=== PATIENT | male | born 1990 | race Caucasian/White ===

== ENCOUNTER 2021-06-10 20:11 | Emergency (ER) | payer OTHER ==
--- NOTE | 2021-06-10 21:00 | XRAY Report ---
PROCEDURE: Finger(s) LT INDICATIONS: Trauma TECHNIQUE: AP hand, 2 views of the left finger(s) acquired. COMPARISON: None FINDINGS: Bones: The left fifth middle phalange is dislocated dorsally. Possible avulsion fracture off the vola r plate of the base of the fifth middle phalange. Soft tissues: No suspicious soft tissue calcifications. IMPRESSION: Left fifth PIP joint dislocation and possible small avulsion fracture of the fifth middle phalangeal volar plate. Reviewed by: Juana Kelley MD, PhD on 06/10/2021 8:59 PM PDT Approved by: Juana Kelley MD, PhD on 06/10/2021 8:59 PM PDT Station ID: [id number]
[2021-06-10] MEDS ORDERED: LIDOCAINE-MPF 2% 5 ML VIAL SUBQ STA (21:18)
--- NOTE | 2021-06-10 21:25 | ED Physician Documentation ---
History of Present Illness - Stated complaint Stated Complaint: LT HAND PX - Chief complaint Chief Complaint: Trauma Ext - History obtained from History obtained from: Patient - History of Present Illness Pain level max: 1 Pain level now: 1 - Additonal information Additional information: Patient is a 31-year-old male, right-handed who presents to the emergency department with a left fifth digit injury. He was performing [employer] tonight when he sustained an injury to the left fifth digit. Noted deformity. Rates the pain as a 1 out of 10. Worse with movement, better with rest. No numbness or tingling. No bleeding. Review of Systems Constitutional: denies: Fever Neurologic: denies: Focal weakness PD PAST MEDICAL HISTORY - Past Medical History Past Medical History: No - Past Surgical History Past Surgical History: Yes - Present Medications Home Medications: Ambulatory Orders Medication Instructions Recorded Confirmed No Known Home Medications 06/10/21 06/10/21 - Allergies Allergies/Adverse Reactions: Allergies Allergy/AdvReac Type Severity Reaction Status Date / Time No Known Drug Allergies Allergy Verified 06/10/21 20:26 - Social History Does the pt smoke?: No Smoking Status: Never smoker Does the pt drink ETOH?: No Does the pt have substance abuse?: No - Immunizations Immunizations are current?: Yes PD ED PE NORMAL - Vitals Vital signs reviewed: Yes - General General: Alert and oriented X 3, No acute distress - HEENT HEENT: Moist mucous membranes - Neck Neck: Supple, no meningeal sign - Cardiac Cardiac: RRR - Respiratory Respiratory: No respiratory distress, Clear bilaterally - Derm Derm: Warm and dry - Extremities Extremities: Other (Deformity to left fifth digit. Neurovascular intact) - Neuro Neuro: Alert and oriented X 3 - Psych Psych: Normal mood, Normal affect Results - Vitals Vitals: Vital Signs - 24 hr 06/10/21 06/10/21 20:19 21:50 Temperature 36.7 C 36.7 C Heart Rate 82 75 Respiratory 16 16 Rate Blood Pressure 133/77 H 131/68 H O2 Saturation 97 98 Oxygen O2 Source Room air - Rads (name of study) Left fifth digit x-ray Radiology: Final report received, EMP read contemporaneously, See rad report Procedures - Reduction Body part reduced: Left, Finger (Fifth digit) Fracture or dislocation: Dislocation Anesthesia: Digital block Reduction aftercare: NV intact, Alignment improved, Splint applied, Patient tolerated well PD MEDICAL DECISION MAKING - ED course Complexity details: reviewed results, considered differential, d/w patient ED course: Patient with a left fifth digit finger dislocation. 2% lidocaine was used as a digital block. Excellent anesthesia. This was reduced easily. Placed in a finger splint. Possible small avulsion. We will have him follow-up with his doctor if he continues to have symptoms. Patient counseled regarding signs and symptoms for which I believe and urgent re-evaluation would be necessary. Patient with good understanding of and agreement to plan and is comfortable going home at this time This document was made in part using voice recognition software. While efforts are made to proofread this document, sound alike and grammatical errors may occur. Departure - Departure Disposition: 01 Home, Self Care Clinical Impression: Finger dislocation Qualifiers: Encounter type: initial encounter Qualified Code(s): S63.259A - Unspecified dislocation of unspecified finger, initial encounter Condition: Good Instructions: ED Dislocation Finger Redu Follow-Up: MARVIN MUNOZ MD [Primary Care Provider] - Within 1 week Comments: Please follow-up with your doctor for further care. Return if you worsen. They may want to repeat your x-rays in 1 week to ensure that it is healing. There is a potential small avulsion fracture. Usually these do not require any further treatment. Wear the splint for the next 3 to 4 days. Discharge Date/Time: 06/10/21 21:52
[2021-06-10 21:52] VITALS: BP 131/68
== END 2021-06-10 21:52 | disposition home or self-care (01) ==
LOC: ED 20:11
DX: S63.257A Unspecified dislocation of left little finger, initial encounter (principal)
CPT/HCPCS: 99282